=== PATIENT | female | born 1965 | race Caucasian/White ===

== ENCOUNTER 2021-01-29 07:21 | Outpatient (CLI) | payer BC, SELFPAY ==
--- NOTE | 2021-01-29 | ECG_ITS ---
Measurements Intervals [place] Rate: 68 P: 58 [place]: 180 QRS: 43 QRSD: 88 T: 29 QT: 384 QTc: 411 Interpretive Statements SINUS RHYTHM NORMAL ECG Electronically Signed On 01-29-2021 9:15:05 ELECTRICAL ENGINEERING DIRECTOR by Alpehs Estrada D.O.
== END 2021-01-29 07:22 | disposition home or self-care (01) ==
PROVIDERS: PCP Family Medicine; Visit Provider Podiatrist Foot & Ankle Surgery
DX: R03.0 Elevated blood-pressure reading, without diagnosis of hypertension (principal)
CPT/HCPCS: 93005

== ENCOUNTER 2021-04-24 18:30 | Inpatient (IN) | payer BC, SELFPAY ==
[2021-04-24] VITALS (18 sets, daily range): BP systolic 121–195; BP diastolic 55–92; PULSE 70–113; RESP 14–24; TEMP 35–36.9; O2SAT 100
--- NOTE | ~2021-04-24 | CT_ITS ---
EXAMINATION: CTA brain carotid EXAM DATE: 04/24/2021 22:26 INDICATION: Vertigo. TECHNIQUE: Noncontrast head CT. Spiral CTA of the carotid arteries was performed with intravenous i njection 100 cc of Omnipaque 350. Axial, coronal, sagittal reformatted images reviewed. Additional r eformatted images created on dedicated 3-D workstation. NASCET comparable standard used to assess th e degree of arterial stenosis. Spiral CT angiogram cerebral arteries performed with the same intrave nous injection of contrast. Source images of the brain CTA transferred to dedicated workstation for 3 -D rotational image creation. Coronal, sagittal maximum intensity pixel images also reviewed. The d ose-length product (DLP) for this examination was 1779.62 mGy-cm. The exposure was tailored accordi ng to patient size, and iterative reconstruction (ASIR) was used as additional dose reduction techniq ue. Compared to prior head CT from 04/15/2018. FINDINGS: No carotid bulb arteriosclerosis, 0% stenosis bilaterally. The vertebral arteries are codom inant. There is no carotid or vertebral basilar arterial dissection or fibromuscular dysplasia. Ther e are no cerebral artery aneurysms. There is symmetric cerebral artery arborization. The sagittal, tr ansverse and sigmoid sinuses enhance normally, no venous sinus thrombosis. Internal cerebral veins al so enhance normally. There is no acute intraparenchymal hemorrhage. No evidence of intraparenchymal brain mass lesion. N o evidence of acute infarction. There is no mass effect or midline shift. There is no obstructive hy drocephalus suspected. There are no extra-axial collections. Incidental Findings: Mild cervical spondylosis. IMPRESSION: 1. No acute carotid or intracranial findings. 2. Bilateral carotid bulb 0% stenosis. Reviewed, dictated and finalized at location B. RAG WASHER
--- NOTE | ~2021-04-24 | MR_ITS ---
EXAMINATION: MR brain/brain stem wo/w con EXAM DATE: 04/25/2021 09:32 INDICATION: Vertigo , constant with movement. TECHNIQUE: Magnetic resonance imaging (MRI) of the brain/brain stem obtained without contrast. Sagit danuta T1, axial diffusion, gradient echo (T2*), T1, T2, FLAIR sequences obtained. Patient was then inj ected with intravenous Multihance contrast, dose not documented in PACS. Axial and coronal postcontra st T1 weighted sequences obtained. Correlation is made to CTA brain carotid from yesterday. FINDINGS: There are no areas of restricted diffusion to suggest acute infarction. There is no acute hemorrhage seen on the T2*, a hemosiderin sensitive sequence. No intraparenchymal brain mass. The ve ntricles are normal in size. There are no extra-axial collections. Flow voids are seen in the cereb ral arteries on the T2-weighted sequences consistent with their expected patency. The orbits are unr emarkable. Soft tissue is unremarkable. There are no areas of abnormal enhancement on the postcont rast images. IMPRESSION: 1. Normal brain MRI examination. Reviewed, dictated and finalized at location B. LOADER
--- NOTE | 2021-04-24 18:34 | ECG_ITS ---
Measurements Intervals [place] Rate: 68 P: 37 TN: 183 QRS: 27 QRSD: 103 T: 11 QT: 411 QTc: 438 Interpretive Statements SINUS RHYTHM NORMAL EKG COMPARED TO ECG 01/29/2021 09:10:40 NO SIGNIFICANT CHANGES Electronically Signed On 04-25-2021 9:02:51 QUALITY CONTROL TECH [employer] by Phil Otoole M.D.
[2021-04-24 18:47] LABS: Basophils Percent Auto 0.4 % (0.2-1.2); Eosinophils Percent Auto 0.3 % (0-4.4); Hematocrit 44.8 % (37.0-47.0); Hemoglobin 14.6 g/dL (12.0-15.0); Immature Granulocyte Absolute 0.11 K/mm3 (0.00-0.031); Immature Granulocyte Percent A 1.2 % (0-0.5); Lymphocytes Absolute Auto 0.98 K/mm3 (0.9-3.2); Lymphocytes Percent Auto 10.9 % (18.3-44.2); Mean Corpuscular HGB Conc 32.6 g/dl (32-36); Mean Corpuscular Hemoglobin 30.4 pg (26-34); Mean Corpuscular Volume 93.1 fl (80-100); Monocytes Absolute Auto 0.6 K/mm3 (0.1-0.6); Monocytes Percent Auto 6.5 % (2.6-8.5); Neutrophils Absolute Auto 7.3 K/mm3 (1.3-6.7); Neutrophils Percent Auto 80.7 % (45.5-73.1); Platelet Count Result 214 k/mm3 (150-375); Red Blood Count 4.81 M/mm3 (4.2-5.4); Red Cell Distribution Width 12.7 % (11.5-14.5)
[2021-04-24 19:03] LABS: Alanine Aminotransferase 101 U/L (4-35); Albumin Level 4.6 g/dL (3.5-5.1); Alkaline Phosphatase 96 U/L (38-126); Anion Gap 11 mmol/L (8-16); Aspartate Amino Transferase 118 U/L (14-36); Bilirubin,Total 0.6 mg/dL (0.2-1.3); Blood Urea Nitrogen 10 mg/dL (7-17); Calcium 9.1 mg/dL (8.4-10.2); Carbon Dioxide 24 mmol/L (22-30); Chloride 107 mmol/L (98-107); Estimated CRCL calculation 85 ml/min; Estimated Glomerular Filt Rate > 60; Glucose 165 mg/dL (65-110); Potassium 3.3 mmol/L (3.4-5.0); Sodium 142 mmol/L (137-145)
[2021-04-24 21:18] LABS: Glucose Point of Care 142 mg/dl (65-105)
[2021-04-24 21:28] LABS: Basophils Absolute Auto 0.1 K/mm3 (0.0-0.1); Basophils Percent Auto 0.4 % (0.2-1.2); Eosinophils Percent Auto 0.1 % (0-4.4); Hematocrit 46.1 % (37.0-47.0); Hemoglobin 15.2 g/dL (12.0-15.0); Immature Granulocyte Percent A 1.1 % (0-0.5); Mean Corpuscular Hemoglobin 30.5 pg (26-34); Mean Corpuscular Volume 92.4 fl (80-100); Mean Platelet Volume 10.9 fl (7.4-10.4); Monocytes Absolute Auto 0.9 K/mm3 (0.1-0.6); Monocytes Percent Auto 5.1 % (2.6-8.5); Neutrophils Percent Auto 82.3 % (45.5-73.1); Platelet Count Result 257 k/mm3 (150-375); Red Blood Count 4.99 M/mm3 (4.2-5.4); Red Cell Distribution Width 12.9 % (11.5-14.5); White Blood Count 18.2 K/mm3 (4.5-10.0)
[2021-04-24 21:37] LABS: INR 1.2; Prothrombin Time 14.3 Seconds (11.1-14.7)
[2021-04-24 21:39] LABS: Alanine Aminotransferase 105 U/L (4-35); Albumin Level 4.9 g/dL (3.5-5.1); Alkaline Phosphatase 106 U/L (38-126); Anion Gap 13 mmol/L (8-16); Aspartate Amino Transferase 123 U/L (14-36); Bilirubin,Total 0.6 mg/dL (0.2-1.3); Blood Urea Nitrogen 10 mg/dL (7-17); Calcium 9.6 mg/dL (8.4-10.2); Carbon Dioxide 23 mmol/L (22-30); Chloride 107 mmol/L (98-107); Estimated CRCL calculation 85 ml/min; Estimated Glomerular Filt Rate > 60; Glucose 136 mg/dL (65-110); Potassium 3.3 mmol/L (3.4-5.0); Sodium 143 mmol/L (137-145)
[2021-04-24] MEDS: ONDANSETRON INJ 4 MG/2 ML VIAL IV PUSH (21:40)
[2021-04-24] MEDS: SODIUM CHLORIDE 0.9% IV 1,000 ML 999 ML IV CONT (21:40)
--- NOTE | 2021-04-24 22:06 | ED.DIZZY ---
HPI - Dizziness General Chief Complaint: Dizziness Stated Complaint: dizzy, n/v Time Seen by Provider: 04/24/21 20:59 Source: patient History of Present Illness HPI Narrative: Patient presents with dizziness nausea and vomiting. She reports she has had intermittent symptoms since midnight. She reports she feels like the whole room is spinning likely makes her symptoms better as she doesn't move and closes her eyes. Her symptoms are associated with nausea and vomiting she'll keep anything down feels like she has something more to throw up. She denies any focal numbness or weakness she denies any chest pain or shortness of breath denies any abdominal pain. Related Data Home Medications Medication Instructions Recorded Confirmed No Home Medications 04/25/21 04/25/21 Allergies Allergy/AdvReac Type Severity Reaction Status Date / Time No Known Allergies Allergy Unverified 06/02/14 08:15 Review of Systems Review of Systems: CONSTITUTIONAL: Denies fever, chills, or sweats. EYES: Denies visual changes, redness, or discharge. ENT: Denies rhinorrhea, congestion, sore throat, or otalgia. CARDIOVASCULAR: Denies chest pain, palpitations, or edema. RESPIRATORY: Denies cough or dyspnea. GASTROINTESTINAL: Denies abdominal pain, or diarrhea. GENITOURINARY: Denies dysuria or hematuria. SKIN: Denies rash or itching. MUSCULOSKELETAL: Denies back pain, joint pain, or myalgia. NEUROLOGIC: Denies headache, numbness, or weakness. PSYCHIATRIC: Denies anxiety or depression. PMFSH Past Medical History Medical History (Updated 04/25/21 @ 01:58 by Mildred Canseco MD) Patient denies significant medical history Family History Family History Father Malignant neoplasm of prostate Family history of diabetes mellitus in first degree relative Mother Family history of diabetes mellitus in first degree relative Family history of malignant neoplasm of breast in first degree relative Social History Social History Smoking status: Never smoker Second hand tobacco smoke exposure: No Alcohol intake: never Substance use: never Spiritual care concerns: No Exam Narrative: GENERAL: Well-appearing, well-nourished, and in no acute distress. HEAD: Normocephalic, atraumatic. EYES: PERRLA and EOMI. ENT: Nares clear, no rhinorrhea or epistaxis. Mucous membranes moist. NECK: Supple. No masses. No JVD CHEST: Clear to auscultation. No respiratory distress. No wheezes rales or rhonchi HEART: Regular rate and rhythm. No murmur heard. Normal peripheral pulses. ABDOMEN: Soft, nontender, nondistended, normal active bowel sounds. EXTREMITIES: Normal range of motion. No edema. SKIN: Warm, dry, no rash. NEURO: Cranial nerves II through XII are intact patient is 5 out of 5 strength in all extremities sensation intact to light touch in all extremities no dysdiadochokinesia no dysmetria alert and oriented x3. PSYCH: Normal mood and affect. Course Reevaluation(s) Reevaluation #1: Patient feeling somewhat improved after Valium was able to ambulate however given multiple medications need to control her symptoms and symptoms still have not completely resolved should benefit from further evaluation and imaging. Case cussed with neurology and hospitalist team will admit for further evaluation. Date: 04/24/21 Time: 23:21 Vital Signs Vital signs: Vital Signs Temperature 35.0 C L 04/24/21 18:31 Pulse Rate 70 04/24/21 18:31 Respiratory Rate 18 04/24/21 18:31 Blood Pressure 137/66 04/24/21 18:31 Pulse Oximetry 100 04/24/21 18:31 Temperature 36.9 C 04/25/21 05:28 Pulse Rate 70 04/25/21 05:28 Respiratory Rate 16 04/25/21 05:28 Blood Pressure 126/64 04/25/21 05:28 Pulse Oximetry 100 04/25/21 05:28 MDM - Dizziness MDM Narrative Medical decision making narrative: Patient presented with vertigo for approxi
[2021-04-24] MEDS: MECLIZINE HCL 25 MG TABLET PO (22:25)
[2021-04-24] MEDS: diazePAM INJ (*CRX) 10 MG/2 ML SYRINGE 2.5 MG IV PUSH (22:56)
--- NOTE | 2021-04-24 23:04 | PM.IMHP ---
H&P: HPI History of Present Illness Date/Time: 04/24/21 23:04 Chief Complaint: Vertigo Narrative: This is a 56-year-old female with no significant past medical history patient with recent foot surgery to the right lower extremity due to protracted foot fracture for the last 2+ years. Patient presents to the emergency room due to vertigo sensation of room spinning around her every time she changes position of her head or open her eyes with some nausea and vomiting as well, no syncope or near syncope , no focal sensorimotor deficit ,no palpitations ,no shortness of breath ,no cough ,no sputum production, no rigors, no chills, no fevers, no abdominal pain, no diarrhea, no vision changes. Preliminary workup was significant for why blood cell count of 18,000 CTA of head and neck did not show any acute abnormalities. Patient also denies any discharge through the nose or congestion. Patient is been admitted for further evaluation, management and treatment. Review of Systems Review of Systems: Vertigo room spinning around sensation. Nausea and vomiting. Constitutional: Constitutional: Denies body ache(s), Denies chills, Denies fatigue, Denies fever(s), Denies headache(s), Denies lethargy, Denies malaise, Denies night sweats and Denies weakness Eyes: Eyes: Denies change in vision ENT: Denies dysphagia, Reports vertigo, Reports dizziness, Denies ear discharge, Denies otalgia, Denies facial pain, Denies nasal congestion, Denies nasal discharge, Denies nasal obstruction, Denies odynophagia and Denies tinnitus Cardiovascular: Cardiovascular: Denies irregular heart rhythm, Denies leg edema, Denies lightheadedness, Denies radiating jaw, neck or arm pain, Denies palpitations, Denies dyspnea, Denies dyspnea on exertion and Denies orthopnea Respiratory: Respiratory: Denies cough, Denies excessive phlegm production, Denies dyspnea, Denies dyspnea on exertion and Denies wheezing Genitourinary: Genitourinary: Denies dysuria Musculoskeletal: Comments: Right foot surgery Integumentary/Breasts: Skin/Breast: Denies rash Neurologic: Reports vertigo, Denies focal weakness and Denies Sensory deficit (Neuro) Psychiatric: Psychiatric: Reports no additional psychiatric complaints and Reports as per HPI Endocrine: Endocrine: Denies cold intolerance, Denies heat intolerance, Denies polyphagia, Denies polydipsia, Denies polyuria and Denies palpitations Hematologic/Lymphatic: Hematologic/Lymphatic: Reports no additional hematologic/lymphatic complaints and Reports as per HPI Allergic/Immunologic: Allergic/Immunologic: Reports no additional allergic/immunologic complaints and Reports as per HPI [facility] Past Medical History Medical History (Updated 04/25/21 @ 01:58 by Mildred Canseco MD) Patient denies significant medical history Family History Family History Father Malignant neoplasm of prostate Family history of diabetes mellitus in first degree relative Mother Family history of diabetes mellitus in first degree relative Family history of malignant neoplasm of breast in first degree relative Social History Social History Smoking status: Never smoker Alcohol intake: never Meds Home Medications and Allergies Allergies Allergy/AdvReac Type Severity Reaction Status Date / Time No Known Allergies Allergy Unverified 06/02/14 08:15 Vital Signs Vital Signs - 24 hr 04/24/21 18:31 04/24/21 21:01 04/24/21 21:02 Temperature 95.0 F L Pulse Rate 70 113 H 99 Respiratory Rate 18 24 H 19 Blood Pressure 137/66 195/92 H Pulse Oximetry 100 04/24/21 21:11 04/24/21 21:30 04/24/21 21:31 Temperature 98.4 F Pulse Rate 85 80 79 Respiratory Rate 19 17 17 Blood Pressure 136/76 134/75 Pulse Oximetry 04/24/21 22:17 04/24/21 22:19 04/24/21 22:30 Temperature Pulse Rate 103 H 84 81 Respiratory Rate 16 18 15 Blood Pressure 1
[2021-04-24 23:20] LABS: Add Urine Microscopic? YES; Appearance Urine Clear (Clear); Bacteria Urine Trace /hpf; Bilirubin Urine Negative (Negative); Blood Urine Negative (Negative); Color Urine Yellow (Yellow); Glucose Urine UA Negative (Negative); Ketones Urine Trace mg/dL (Negative); Leukocyte Esterase Ur Negative LEU/UL (Negative); Mucus Urine Rare /lpf; Nitrate Urine Negative (Negative); Protein Urine Negative (Negative); RBC Urine 0-2 /hpf (0-2); Squamous Epithelial Cell Urine Occasional /hpf (Few); Urobilinogen Urine Negative mg/dL (<2.0); WBC Urine 0-3 /hpf
[2021-04-25] VITALS (11 sets, daily range): BP systolic 115–143; BP diastolic 58–86; PULSE 70–81; RESP 16–22; TEMP 36.2–37.1; O2SAT 97–100; BMI 28.6
--- NOTE | 2021-04-25 00:22 | PC.NURSE ---
Pt ambulatory to rest room (5') with stand by assistance by staff.
--- NOTE | 2021-04-25 00:30 | ADMGEN ---
This patient, Daisha Tabor, was admitted to 3 Med Surg Room 327-01. Patient/family oriented to hospital policies and general routines including ID bracelet, bed and alarms, visiting hours, pain management, procedures, bathroom and other care routines, personal items, smoking policy, room service/diet, and visiting hours. Information on how to activate the Rapid Response Team has been discussed. Patient/Family are encouraged to report perceived risks to care and to ask questions if they do not understand what they are told or what they should do.
[2021-04-25] MEDS: ONDANSETRON INJ 4 MG/2 ML VIAL IV PUSH (01:04)
[2021-04-25] MEDS: SODIUM CHLORIDE 0.9% IV 1,000 ML 125 ML IV CONT ×2 (03:57→13:31)
[2021-04-25 05:55] LABS: Basophils Percent Auto 0.2 % (0.2-1.2); Eosinophils Percent Auto 0.1 % (0-4.4); Hematocrit 39.2 % (37.0-47.0); Hemoglobin 12.8 g/dL (12.0-15.0); Immature Granulocyte Absolute 0.03 K/mm3 (0.00-0.031); Immature Granulocyte Percent A 0.4 % (0-0.5); Lymphocytes Absolute Auto 1.31 K/mm3 (0.9-3.2); Lymphocytes Percent Auto 15.9 % (18.3-44.2); Mean Corpuscular HGB Conc 32.7 g/dl (32-36); Mean Corpuscular Hemoglobin 30.7 pg (26-34); Mean Platelet Volume 10.7 fl (7.4-10.4); Monocytes Absolute Auto 0.5 K/mm3 (0.1-0.6); Monocytes Percent Auto 6.5 % (2.6-8.5); Neutrophils Absolute Auto 6.3 K/mm3 (1.3-6.7); Neutrophils Percent Auto 76.9 % (45.5-73.1); Platelet Count Result 180 k/mm3 (150-375); Red Blood Count 4.17 M/mm3 (4.2-5.4); Red Cell Distribution Width 12.9 % (11.5-14.5); White Blood Count 8.3 K/mm3 (4.5-10.0)
--- NOTE | 2021-04-25 12:56 | WPDNEURCNPN ---
Assessment and Plan Additional Plan Labyrinthitis/ treatment supportive Consult date: 04/25/21 HPI: Daisha Tabor is a 56 year old female admitted to the hospital for the complaints of vertiginous dizziness in addition to the history of recent foot surgery to her right lower extremity due to protracted foot fracture over the last 2 years patient reported to the ER personnel the room was spinning around her time she changed position of her head her open her eyes with nausea and vomiting but no syncope or near syncopal episodes no focal sensory motor deficit no palpitation no shortness of breath no cough initial evaluation documented WBCs of 18.[address] scan of the head repeat WBC is only 8.3 coagulation profile negative , BMP with potassium 3.3 glucose 136 hepatic enzymes elevated and UA negative, initial CTA with bilateral carotid bulbs 0% stenosis no acute stenosis or blockage an MRI of the brain without involvement of the posterior circulation or posterior fossa or internal canals Review of Systems Review of Systems: All systems reviewed & are unremarkable except as noted in HPI and below PMFSH Past Medical History Medical History Patient denies significant medical history Family History Family History Father Malignant neoplasm of prostate Family history of diabetes mellitus in first degree relative Mother Family history of diabetes mellitus in first degree relative Family history of malignant neoplasm of breast in first degree relative Social History Social History Smoking status: Never smoker Second hand tobacco smoke exposure: No Alcohol intake: never Substance use: never Spiritual care concerns: No Meds Home Medications and Allergies Home Medications Medication Instructions Recorded Confirmed Type No Home Medications 04/25/21 04/25/21 History Allergies Allergy/AdvReac Type Severity Reaction Status Date / Time No Known Allergies Allergy Unverified 06/02/14 08:15 Vital Signs Vital Signs - 24 hr 04/24/21 18:31 04/24/21 21:01 04/24/21 21:02 Temperature 35.0 C L Pulse Rate 70 113 H 99 Respiratory Rate 18 24 H 19 Blood Pressure 137/66 195/92 H Pulse Oximetry 100 04/24/21 21:11 04/24/21 21:30 04/24/21 21:31 Temperature 36.9 C Pulse Rate 85 80 79 Respiratory Rate 19 17 17 Blood Pressure 136/76 134/75 Pulse Oximetry 04/24/21 22:17 04/24/21 22:19 04/24/21 22:30 Temperature Pulse Rate 103 H 84 81 Respiratory Rate 16 18 15 Blood Pressure 121/55 L Pulse Oximetry 04/24/21 22:31 04/24/21 22:32 04/24/21 22:35 Temperature Pulse Rate 81 82 82 Respiratory Rate 18 16 20 Blood Pressure 126/64 161/84 H Pulse Oximetry 04/24/21 22:43 04/24/21 22:44 04/24/21 23:00 Temperature Pulse Rate 81 78 77 Respiratory Rate 19 14 Blood Pressure 153/90 H 153/90 H Pulse Oximetry 04/24/21 23:01 04/24/21 23:30 04/24/21 23:46 Temperature 36.9 C Pulse Rate 91 75 84 Respiratory Rate 20 15 24 H Blood Pressure 135/76 121/61 Pulse Oximetry 04/25/21 00:00 04/25/21 00:01 04/25/21 00:02 Temperature 37.1 C Pulse Rate 73 75 77 Respiratory Rate 17 22 H 19 Blood Pressure 122/58 L Pulse Oximetry 04/25/21 00:30 04/25/21 01:01 04/25/21 02:24 Temperature 36.3 C L Pulse Rate 72 72 71 Respiratory Rate 16 16 Blood Pressure 143/86 H 138/69 Pulse Oximetry 100 04/25/21 05:28 04/25/21 11:58 Temperature 36.9 C Pulse Rate 70 Respiratory Rate 16 Blood Pressure 126/64 Pulse Oximetry 100 99 Exam Narrative: awake alert cooperative in no obvious acute distress, head normocephalic with no cranial bruit, ear nose throat examination normal, neck supple with no cervical bruit no thyromegaly no lymphadenopathy, heart regular with no murmur lungs clear to auscultation with
[2021-04-25] MEDS: LORazepam INJ (*CRX) 2 MG/ML VIAL 1 MG IV PUSH (13:37)
[2021-04-25] MEDS: MECLIZINE HCL 25 MG TABLET PO (13:37)
--- NOTE | 2021-04-25 14:42 | PM.IMPN ---
Progress Note: A&P Assessment and Plan (1) Benign paroxysmal positional vertigo: Code(s): H81.10 - Benign paroxysmal vertigo, unspecified ear Status: Acute Assessment and Plan: MRI head is negative Neurology consult reviewed Pt still complains of dizziness and turning her head, I will consult ENT (2) Nausea & vomiting: Qualifiers: Vomiting type: unspecified Qualified Code(s): R11.2 - Nausea with vomiting, unspecified Code(s): R11.2 - Nausea with vomiting, unspecified Status: Acute Assessment and Plan: Likely secondary to vertigo Continue IV fluids (3) Wound of right foot: Code(s): S91.301A - Unspecified open wound, right foot, initial encounter Status: Acute Assessment and Plan: Local care I will treat with IV vancomycin recent foot surgery with infection Watch for Subjective Date/time seen: 04/25/21 14:42 Interval history: 56-year-old female with no significant past medical history patient with recent foot surgery to the right lower extremity due to protracted foot fracture for the last 2+ years. Complains of vertigo Mri is negative. Pt seen by neurology, I will consult ENT also. Awaiting recent foot surgery. Review of Systems Review of Systems: All systems reviewed & are unremarkable except as noted in HPI and below Exam Const: General: No in distress Nutritional Appearance: other (anxious tired ) Orientation/consciousness: oriented to person HENMT: Head: normal to inspection Resp: Effort & Inspection: no respiratory distress Auscultation: no rhonchi and no wheezes Cardio: Rate: regular rate Rhythm: regular rhythm GI: Inspection: normal to inspection GI Palp: No abdominal tenderness, No Guarding due to palpation present (GI) and No Hepatomegaly present Auscultation: normal bowel sounds Neuro: General: oriented to person Objective Data Vital Signs Vital Signs: Vital Signs - 24 hr 04/24/21 18:31 04/24/21 21:01 04/24/21 21:02 Temperature 35.0 C L Pulse Rate 70 113 H 99 Respiratory Rate 18 24 H 19 Blood Pressure 137/66 195/92 H Pulse Oximetry 100 04/24/21 21:11 04/24/21 21:30 04/24/21 21:31 Temperature 36.9 C Pulse Rate 85 80 79 Respiratory Rate 19 17 17 Blood Pressure 136/76 134/75 Pulse Oximetry 04/24/21 22:17 04/24/21 22:19 04/24/21 22:30 Temperature Pulse Rate 103 H 84 81 Respiratory Rate 16 18 15 Blood Pressure 121/55 L Pulse Oximetry 04/24/21 22:31 04/24/21 22:32 04/24/21 22:35 Temperature Pulse Rate 81 82 82 Respiratory Rate 18 16 20 Blood Pressure 126/64 161/84 H Pulse Oximetry 04/24/21 22:43 04/24/21 22:44 04/24/21 23:00 Temperature Pulse Rate 81 78 77 Respiratory Rate 19 14 Blood Pressure 153/90 H 153/90 H Pulse Oximetry 04/24/21 23:01 04/24/21 23:30 04/24/21 23:46 Temperature 36.9 C Pulse Rate 91 75 84 Respiratory Rate 20 15 24 H Blood Pressure 135/76 121/61 Pulse Oximetry 04/25/21 00:00 04/25/21 00:01 04/25/21 00:02 Temperature 37.1 C Pulse Rate 73 75 77 Respiratory Rate 17 22 H 19 Blood Pressure 122/58 L Pulse Oximetry 04/25/21 00:30 04/25/21 01:01 04/25/21 02:24 Temperature 36.3 C L Pulse Rate 72 72 71 Respiratory Rate 16 16 Blood Pressure 143/86 H 138/69 Pulse Oximetry 100 04/25/21 05:28 04/25/21 11:58 Temperature 36.9 C Pulse Rate 70 Respiratory Rate 16 Blood Pressure 126/64 Pulse Oximetry 100 99 Intake/Output Intake/Output: Intake & Output 04/22/21 04/23/21 04/24/21 04/25/21 23:59 23:59 23:59 23:59 Intake Total 1000 1500 Output Total 500 Balance 1000 1000 Meds/Results Medications: Active Medications Generic Name Dose Route Start Last Admin Trade Name Freq PRN Reason Stop Dose Admin Acetaminophen 1,000 mg in 100 mls @ 400 mls/hr 04/24/21 23:23 Ofirmev 1,000 Mg Ivpb IVPB 04/25/21 23:22 Q6H PRN Mild Pain (1-3) or Fever Sodium Chlor
--- NOTE | 2021-04-25 19:57 | WPDCN ---
Assessment and Plan Assessment and plan (1) Vertigo: Code(s): R42 - Dizziness and giddiness Status: Acute Assessment and Plan: My impression is that the patient currently has a vestibular neuritis, possible positional component. Unsure why white count elevated yesterday, perhaps post operative etiology. Recommend ruling out sepsis/post op etiology. Regarding neuritis, low dose steroid taper may be beneficial. Once the patient improves and move around, conisder physical therapy consultation for balanace as well as to better delineate any positional vertigo component with a hope of improving the positional component if present via erasmo etc. Benzos, low dose, may also be of benefit re vertigo/nausea, also if there is a migraine component. Patient does have a history of migraines, makes her more likely to suffer from migraine vertiginous variants. In summary, rule out post op cause, trial of low dose steroids, once improving consult physical therapy. Please call with any questions [phone] (2) Vestibular neuritis: Code(s): H81.20 - Vestibular neuronitis, unspecified ear Status: Acute HPI Data of Consult Date/Time: 04/25/21 19:57 Requesting Physician: Mildred Canseco MD Primary Care Provider: Stanley Burr MD Consult Narrative Narrative: Daisha Tabor is a 56 year old female with a recent onset of vertigo/nausea/vomitting. Denies recent URI. No hearing changes, no tinnitus. Recent foot surgery. WBC elevated yesterday, appears normal now, afebrile. Vertigo imbalance present at baseline. Vertigo worse with really all head movements. CTA reviewed, normal from ent standpoint. [facility] Past Medical History Medical History Patient denies significant medical history Family History Family History Father Malignant neoplasm of prostate Family history of diabetes mellitus in first degree relative Mother Family history of diabetes mellitus in first degree relative Family history of malignant neoplasm of breast in first degree relative Social History Social History Smoking status: Never smoker Second hand tobacco smoke exposure: No Alcohol intake: never Substance use: never Spiritual care concerns: No Meds Home Medications and Allergies Home Medications Medication Instructions Recorded Confirmed Type No Home Medications 04/25/21 04/25/21 History Allergies Allergy/AdvReac Type Severity Reaction Status Date / Time No Known Allergies Allergy Unverified 06/02/14 08:15 Vital Signs Vital Signs - 24 hr 04/24/21 21:01 04/24/21 21:02 04/24/21 21:11 Temperature Pulse Rate 113 H 99 85 Respiratory Rate 24 H 19 19 Blood Pressure 195/92 H 136/76 Pulse Oximetry 04/24/21 21:30 04/24/21 21:31 04/24/21 22:17 Temperature 36.9 C Pulse Rate 80 79 103 H Respiratory Rate 17 17 16 Blood Pressure 134/75 Pulse Oximetry 04/24/21 22:19 04/24/21 22:30 04/24/21 22:31 Temperature Pulse Rate 84 81 81 Respiratory Rate 18 15 18 Blood Pressure 121/55 L 126/64 Pulse Oximetry 04/24/21 22:32 04/24/21 22:35 04/24/21 22:43 Temperature Pulse Rate 82 82 81 Respiratory Rate 16 20 Blood Pressure 161/84 H 153/90 H Pulse Oximetry 04/24/21 22:44 04/24/21 23:00 04/24/21 23:01 Temperature 36.9 C Pulse Rate 78 77 91 Respiratory Rate 19 14 20 Blood Pressure 153/90 H 135/76 Pulse Oximetry 04/24/21 23:30 04/24/21 23:46 04/25/21 00:00 Temperature Pulse Rate 75 84 73 Respiratory Rate 15 24 H 17 Blood Pressure 121/61 Pulse Oximetry 04/25/21 00:01 04/25/21 00:02 04/25/21 00:30 Temperature 37.1 C Pulse Rate 75 77 72 Respiratory Rate 22 H 19 Blood Pressure 122/58 L Pulse Oximetry 04/25/21 01:01 04/25/21 02:24 04/25/21 05:28 Temperature 36.3 C L 36.9 C P
[2021-04-26] MEDS: SODIUM CHLORIDE 0.9% IV 1,000 ML 75 ML IV CONT ×2 (04:07→20:17)
[2021-04-26 05:53] VITALS: BP 130/78; PULSE 60; RESP 16; TEMP 36.4; O2SAT 98
[2021-04-26 05:54] VITALS: BP 130/78; PULSE 60; RESP 16; TEMP 36.4; O2SAT 98
[2021-04-26 06:26] LABS: Estimated CRCL calculation 85 ml/min; Estimated Glomerular Filt Rate > 60
[2021-04-26 10:03] LABS: CRP < 0.5 mg/dL (<1.0)
[2021-04-26 10:13] LABS: Erythrocyte Sedimentation Rate 20 mm/hr (0-20)
[2021-04-26] MEDS: LORazepam INJ (*CRX) 2 MG/ML VIAL 1 MG IV PUSH (11:23)
[2021-04-26] MEDS: MECLIZINE HCL 25 MG TABLET PO (11:23)
[2021-04-26] MEDS: ACETAMINOPHEN/ASPIRIN/CAFFEINE 250-250-65 MG TABLET 2 TABLET PO (11:30)
--- NOTE | 2021-04-26 12:59 | WPDNEUROPN ---
Progress Note: A&P Additional Plan continue the treatment as such which include IV fluids, meclizine and bedrest Time Spent With Patient Time with patient: less than 15 minutes Subjective Date/time seen: 04/26/21 12:59 labyrinthitis with normal routine lab including pro time and APTT though her hepatic enzymes are elevated C-reactive protein is less than 0.5, MRI of the brain is negative including the safety admin assistant fossa and CTA is completely negative Review of Systems Review of Systems: All systems reviewed & are unremarkable except as noted in HPI and below Exam Narrative: remains awake alert but very uncomfortable the moment she moves her head from side to side she becomes dizzy she can't raise the head off the bed can't sit can't walk, no cranial bruit, ear nose throat examination normal neck supple with no cervical bruit no thyromegaly no lymphadenopathy heart regular lungs clear abdomen is soft neurological is she is awake alert but uncomfortable preferred to keep the eyes closed pupils round regular feels the vision full extraocular motions with the mild nystagmus facial sensation intact face symmetrical tongue midline motor examination revealed her to have no gross drift against gravity on either side reflexes symmetrical plantars are downgoing Objective Data Vital Signs Vital Signs: Vital Signs - 24 hr 04/25/21 20:43 04/25/21 21:05 04/25/21 21:10 Temperature 36.2 C L 36.2 C L Pulse Rate 81 81 Respiratory Rate 18 18 Blood Pressure 115/72 115/72 Pulse Oximetry 97 97 97 04/26/21 05:53 04/26/21 05:54 Temperature 36.4 C 36.4 C Pulse Rate 60 60 Respiratory Rate 16 16 Blood Pressure 130/78 130/78 Pulse Oximetry 98 98 Intake/Output Intake/Output: Intake & Output 04/23/21 04/24/21 04/25/21 04/26/21 23:59 23:59 23:59 23:59 Intake Total 1000 2110 1610 Output Total 1000 1550 Balance 1000 1110 60 Meds/Results Medications: Active Medications Generic Name Dose Route Start Last Admin Trade Name Freq PRN Reason Stop Dose Admin Acetaminophen/Aspirin/Caffeine 2 tablet 04/26/21 11:12 04/26/21 11:30 Acetaminophen/Aspirin/Caffeine 250-250-65 Mg Tablet PO 2 tablet Q6H PRN Administration Pain Rated 1-3 Sodium Chloride 1,000 mls @ 75 mls/hr 04/24/21 23:25 04/26/21 04:07 Normal Saline Iv IV CONT 75 mls/hr .[id number] VIOLETA Administration Vancomycin HCl 1,250 mg in 250 mls @ 200 mls/hr 04/25/21 16:00 04/26/21 06:35 Vancomycin 1,250 Mg/D5w 250 Ml IVPB Infused Q12H VIOLETA Infusion Lorazepam 1 mg 04/24/21 23:28 04/26/21 11:23 Lorazepam Inj (*Crx) 2 Mg/Ml Vial IV PUSH 1 mg Q6H PRN Administration Vertigo Meclizine HCl 25 mg 04/24/21 23:30 04/26/21 11:23 Meclizine Hcl 25 Mg Tablet PO 25 mg BID PRN Administration vertigo Ondansetron HCl 4 mg 04/24/21 23:23 04/25/21 01:04 Ondansetron Inj 4 Mg/2 Ml Vial IV PUSH 4 mg Q4H PRN Administration Nausea Radiology Results: ITS Impressions Head/Neck CTA 04/25/21 08:15 IMPRESSION: 1. No acute carotid or intracranial findings. 2. Bilateral carotid bulb 0% stenosis. Brain MRI 04/25/21 09:39 IMPRESSION: 1. Normal brain MRI examination. Labs Labs: Laboratory Results - last 24 hr 04/26/21 04/26/21 04/26/21 05:41 05:44 05:44 ESR 20 Creatinine 0.70 Estim Creat Clear Calc 85 Estimated GFR > 60 C-Reactive Protein < 0.5 Quality VTE Prophylaxis VTE prophylaxis: mechanical ordered
[2021-04-26 14:00] VITALS: BP 153/90; PULSE 83; RESP 18; TEMP 36.1; O2SAT 97
--- NOTE | 2021-04-26 15:00 | PCOTNOTE ---
Per nurse, pt. on bedrest orders for today
--- NOTE | 2021-04-26 15:07 | PCOTNOTE ---
Pt. unable to be evaluated today as pt. is on bedrest orders
--- NOTE | 2021-04-26 16:18 | PM.IMPN ---
Progress Note: A&P Assessment and Plan (1) Benign paroxysmal positional vertigo: Code(s): H81.10 - Benign paroxysmal vertigo, unspecified ear Status: Acute Assessment and Plan: MRI head is negative Neurology consult reviewed Pt still complains of dizziness and turning her head, I will consult ENT 04/26/2021 interval history: patient with complaint of dizziness and nausea and vomiting, CTA of the head and neck and MRI of the brain are negative for any acute injury, patient is seen by ENT and suspect patient may have a vestibular neuritis recommended to start the patient low-dose of steroids will start the patient on methylprednisone 40 mg b.i.d., patient is seen by Neurology and suspect labyrinthitis, patient is also started on meclizine, will continue to monitor will have a PT OT evaluate the patient further recommendation to follow. (2) Nausea & vomiting: Qualifiers: Vomiting type: unspecified Qualified Code(s): R11.2 - Nausea with vomiting, unspecified Code(s): R11.2 - Nausea with vomiting, unspecified Status: Acute Assessment and Plan: Likely secondary to vertigo Continue IV fluids (3) Wound of right foot: Code(s): S91.301A - Unspecified open wound, right foot, initial encounter Status: Acute Assessment and Plan: Local care I will treat with IV vancomycin recent foot surgery with infection Watch for BC Subjective Date/time seen: 04/26/21 16:18 Chief Complaint: Vertigo HPI-Narrative: This is a 56-year-old female with no significant past medical history patient with recent foot surgery to the right lower extremity due to protracted foot fracture for the last 2+ years. Patient presents to the emergency room due to vertigo sensation of room spinning around her every time she changes position of her head or open her eyes with some nausea and vomiting as well, no syncope or near syncope , no focal sensorimotor deficit ,no palpitations ,no shortness of breath ,no cough ,no sputum production, no rigors, no chills, no fevers, no abdominal pain, no diarrhea, no vision changes. Preliminary workup was significant for why blood cell count of 18,000 CTA of head and neck did not show any acute abnormalities. Patient also denies any discharge through the nose or congestion. Patient is been admitted for further evaluation, management and treatment. 04/26/2021 interval history: patient with complaint of dizziness and nausea and vomiting, CTA of the head and neck and MRI of the brain are negative for any acute injury, patient is seen by ENT and suspect patient may have a vestibular neuritis recommended to start the patient low-dose of steroids will start the patient on methylprednisone 40 mg b.i.d., patient is seen by Neurology and suspect labyrinthitis, patient is also started on meclizine, will continue to monitor will have a PT OT evaluate the patient further recommendation to follow. Review of Systems Review of Systems: All systems reviewed & are unremarkable except as noted in HPI and below Exam Narrative: Patient is comfortable, NAD HEENT: eyes are clear and none icteric LUNGS: normal respiratory effort ABD: not distended Lower extremities: no edema SKIN: nonjaundiced Neuro: grossly intact. Objective Data Vital Signs Vital Signs: Vital Signs - 24 hr 04/25/21 20:43 04/25/21 21:05 04/25/21 21:10 Temperature 97.1 F L 97.1 F L Pulse Rate 81 81 Respiratory Rate 18 18 Blood Pressure 115/72 115/72 Pulse Oximetry 97 97 97 04/26/21 05:53 04/26/21 05:54 04/26/21 14:00 Temperature 97.6 F 97.6 F 97 F L Pulse Rate 60 60 83 Respiratory Rate 16 16 18 Blood Pressure 130/78 130/78 153/90 H Pulse Oximetry 98 98 97 Intake/Output Intake/Output: Intake & Output 04/23/21 04/24/21 04/25/21 04/26/21 23:59 23:59 23:59 23:59 Intake Total 1000 2110 1730 Output Total 1000 1550 Balance 1000 1110 180 Meds/Results Medications: Activ
[2021-04-26] MEDS: methylPREDNISolone SOD SUCC 40 MG VIAL IV PUSH (17:48)
[2021-04-26 20:35] VITALS: PULSE 86; O2SAT 94
[2021-04-26 22:00] VITALS: BP 134/76; PULSE 86; RESP 16; TEMP 36.2; O2SAT 95
[2021-04-27 04:39] LABS: Vancomycin Trough 10.1 ug/mL (10.0-20.0)
[2021-04-27] MEDS: MECLIZINE HCL 25 MG TABLET PO ×2 (05:16→16:49)
[2021-04-27 06:00] VITALS: BP 128/80; PULSE 73; RESP 16; TEMP 36.1; O2SAT 95
--- NOTE | 2021-04-27 07:13 | P.CONOP_ITS ---
Assessment and Plan Additional Plan 56-year-old female whom we are asked to consult on on whether or not she may have an infection in her foot. She had multiple foot surgeries starting in January by local project management professor. She has recently had a K-wire pin removed. Patient has vestibular neuritis and it is recommended that she be started on steroids. For steroids were started we are asked for evaluation make sure there was no issues in regards to starting the steroids and relative to her foot. Dr. Marr did review op notes. He also had them draw a sed rate in CRP both of these are completely normal which would rule against any type of infection. Oral steroids can be used on her without any concern with regard to her foot. I f patient continues to have any symptoms in her foot she should follow-up with the project management professor who did her surgeries. History of Present Illness HPI Consult date: 04/27/21 Chief complaint: veritgo PMFSH Past Medical History Medical History Patient denies significant medical history Family History Family History Father Malignant neoplasm of prostate Family history of diabetes mellitus in first degree relative Mother Family history of diabetes mellitus in first degree relative Family history of malignant neoplasm of breast in first degree relative Social History Social History Smoking status: Never smoker Second hand tobacco smoke exposure: No Alcohol intake: never Substance use: never Spiritual care concerns: No Meds Home Medications and Allergies Home Medications Medication Instructions Recorded Confirmed Type No Home Medications 04/25/21 04/25/21 History Allergies Allergy/AdvReac Type Severity Reaction Status Date / Time No Known Allergies Allergy Unverified 06/02/14 08:15 Vital Signs Vital Signs - 24 hr 04/26/21 14:00 04/26/21 20:35 04/26/21 22:00 Temperature 36.1 C L 36.2 C L Pulse Rate 83 86 86 Respiratory Rate 18 16 Blood Pressure 153/90 H 134/76 Pulse Oximetry 97 94 95 04/27/21 06:00 Temperature 36.1 C L Pulse Rate 73 Respiratory Rate 16 Blood Pressure 128/80 Pulse Oximetry 95 Results Labs Result Diagrams: 04/25/21 05:40 04/26/21 05:44 Labs: H & H 04/24/21 04/24/21 04/25/21 Range/Units 18:40 21:18 05:40 Hgb 14.6 15.2 H 12.8 (12.0-15.0) g/dL Hct 44.8 46.1 39.2 (37.0-47.0) % Coagulation 04/24/21 Range/Units 21:18 INR 1.2 All other labs normal. Quality VTE Prophylaxis VTE prophylaxis: mechanical ordered
[2021-04-27] MEDS: methylPREDNISolone SOD SUCC 40 MG VIAL IV PUSH ×2 (08:01→16:49)
[2021-04-27] MEDS: ACETAMINOPHEN/ASPIRIN/CAFFEINE 250-250-65 MG TABLET 2 TABLET PO (10:09)
[2021-04-27] MEDS: SODIUM CHLORIDE 0.9% IV 1,000 ML 75 ML IV CONT (10:09)
--- NOTE | 2021-04-27 10:18 | PCPTNOTE ---
Attempted physical therapy evaluation, Pt. unable to be evaluated today as pt. is on bedrest orders. Awaiting a call back from hospitalist to see if orders can be changed at this time.
--- NOTE | 2021-04-27 12:51 | WPDNEUROPN ---
Subjective Date/time seen: 04/27/21 12:51 follow-up for the vestibular dysfunction, significantly improved able to sit in the chair look around with no nystagmus and also no nausea vomiting or dizziness but is still not completely back to 100% medications are being continued such on examination she is awake alert cooperative his speech nor dysphasic no dysarthric not dysphonic the cranial examination is normal motor examination revealed no ataxia or dysmetria no drift against gravity reflexes symmetrical and plantars are downgoing treatment will be continued Objective Data Vital Signs Vital Signs: Vital Signs - 24 hr 04/26/21 14:00 04/26/21 20:35 04/26/21 22:00 Temperature 36.1 C L 36.2 C L Pulse Rate 83 86 86 Respiratory Rate 18 16 Blood Pressure 153/90 H 134/76 Pulse Oximetry 97 94 95 04/27/21 06:00 Temperature 36.1 C L Pulse Rate 73 Respiratory Rate 16 Blood Pressure 128/80 Pulse Oximetry 95 Intake/Output Intake/Output: Intake & Output 04/24/21 04/25/21 04/26/21 04/27/21 23:59 23:59 23:59 23:59 Intake Total 1000 2110 3520 2480 Output Total 1000 3050 1900 Balance 1000 1110 470 580 Meds/Results Medications: Active Medications Generic Name Dose Route Start Last Admin Trade Name Freq PRN Reason Stop Dose Admin Acetaminophen/Aspirin/Caffeine 2 tablet 04/26/21 11:12 04/27/21 10:09 Acetaminophen/Aspirin/Caffeine 250-250-65 Mg Tablet PO 2 tablet Q6H PRN Administration Pain Rated 1-3 Sodium Chloride 1,000 mls @ 75 mls/hr 04/24/21 23:25 04/27/21 10:09 Normal Saline Iv IV CONT 75 mls/hr .[id number] VIOLETA Administration Vancomycin HCl 1,250 mg in 250 mls @ 200 mls/hr 04/25/21 16:00 04/27/21 07:40 Vancomycin 1,250 Mg/D5w 250 Ml IVPB Infused Q12H VIOLETA Infusion Lorazepam 1 mg 04/24/21 23:28 04/26/21 11:23 Lorazepam Inj (*Crx) 2 Mg/Ml Vial IV PUSH 1 mg Q6H PRN Administration Vertigo Meclizine HCl 25 mg 04/24/21 23:30 04/27/21 05:16 Meclizine Hcl 25 Mg Tablet PO 25 mg BID PRN Administration vertigo Methylprednisolone Sodium Succinate 40 mg 04/26/21 17:00 04/27/21 08:01 Methylprednisolone Sod Succ 40 Mg Vial IV PUSH 40 mg BID VIOLETA Administration Ondansetron HCl 4 mg 04/24/21 23:23 04/25/21 01:04 Ondansetron Inj 4 Mg/2 Ml Vial IV PUSH 4 mg Q4H PRN Administration Nausea Radiology Results: ITS Impressions Head/Neck CTA 04/25/21 08:15 IMPRESSION: 1. No acute carotid or intracranial findings. 2. Bilateral carotid bulb 0% stenosis. Brain MRI 04/25/21 09:39 IMPRESSION: 1. Normal brain MRI examination. Labs Labs: Laboratory Results - last 24 hr 04/27/21 03:28 Vancomycin Trough 10.1 Quality VTE Prophylaxis VTE prophylaxis: mechanical ordered Amg Follow-up Billing Inpatient Follow-up [id number] Subs Hosp Care Low
[2021-04-27 13:41] VITALS: BP 146/91; PULSE 87; RESP 18; TEMP 36.1; O2SAT 97
--- NOTE | 2021-04-27 14:20 | PM.IMPN ---
Progress Note: A&P Assessment and Plan (1) Benign paroxysmal positional vertigo: Code(s): H81.10 - Benign paroxysmal vertigo, unspecified ear Status: Acute Assessment and Plan: MRI head is negative Neurology consult reviewed Pt still complains of dizziness and turning her head, I will consult ENT 04/26/2021 interval history: patient with complaint of dizziness and nausea and vomiting, CTA of the head and neck and MRI of the brain are negative for any acute injury, patient is seen by ENT and suspect patient may have a vestibular neuritis recommended to start the patient low-dose of steroids will start the patient on methylprednisone 40 mg b.i.d., patient is seen by Neurology and suspect labyrinthitis, patient is also started on meclizine, will continue to monitor will have a PT OT evaluate the patient further recommendation to follow. 04/27/2021 interval history: patient continue to complaint of dizziness and nausea and vomiting, CTA of the head and neck and MRI of the brain are negative for any acute injury, patient was seen by ENT and suspect patient may have a vestibular neuritis recommended to start the patient low-dose of steroids, started the patient on methylprednisone IV 40 mg b.i.d., patient is seen by Neurology and suspect labyrinthitis, patient is also started on meclizine, patient still unsteady of her feet, will continue IV steroids, will continue to monitor, have continue PT OT evaluate the patient further recommendation to follow. (2) Nausea & vomiting: Qualifiers: Vomiting type: unspecified Qualified Code(s): R11.2 - Nausea with vomiting, unspecified Code(s): R11.2 - Nausea with vomiting, unspecified Status: Acute Assessment and Plan: Likely secondary to vertigo Continue IV fluids (3) Wound of right foot: Code(s): S91.301A - Unspecified open wound, right foot, initial encounter Status: Acute Assessment and Plan: Local care I will treat with IV vancomycin recent foot surgery with infection Watch for BC Subjective Date/time seen: 04/27/21 14:20 04/26/2021 interval history: patient with complaint of dizziness and nausea and vomiting, CTA of the head and neck and MRI of the brain are negative for any acute injury, patient is seen by ENT and suspect patient may have a vestibular neuritis recommended to start the patient low-dose of steroids will start the patient on methylprednisone 40 mg b.i.d., patient is seen by Neurology and suspect labyrinthitis, patient is also started on meclizine, will continue to monitor will have a PT OT evaluate the patient further recommendation to follow. 04/27/2021 interval history: patient continue to complaint of dizziness and nausea and vomiting, CTA of the head and neck and MRI of the brain are negative for any acute injury, patient was seen by ENT and suspect patient may have a vestibular neuritis recommended to start the patient low-dose of steroids, started the patient on methylprednisone IV 40 mg b.i.d., patient is seen by Neurology and suspect labyrinthitis, patient is also started on meclizine, patient still unsteady of her feet, will continue IV steroids, will continue to monitor, have continue PT OT evaluate the patient further recommendation to follow. Review of Systems Review of Systems: All systems reviewed & are unremarkable except as noted in HPI and below Exam Narrative: Patient is comfortable, NAD HEENT: eyes are clear and none icteric LUNGS: normal respiratory effort ABD: not distended Lower extremities: no edema SKIN: nonjaundiced Neuro: grossly intact. Objective Data Vital Signs Vital Signs: Vital Signs - 24 hr 04/26/21 20:35 04/26/21 22:00 04/27/21 06:00 Temperature 97.1 F L 96.9 F L Pulse Rate 86 86 73 Respiratory Rate 16 16 Blood Pressure 134/76 128/80 Pulse Oximetry 94 95 95 04/27/21 13:41 Temperature 97 F L Pulse Rate 87 Respiratory Rate 18
[2021-04-27 21:59] VITALS: BP 140/80; PULSE 90; RESP 16; TEMP 36.1; O2SAT 97
[2021-04-28] MEDS: SODIUM CHLORIDE 0.9% IV 1,000 ML 75 ML IV CONT (05:17)
[2021-04-28 05:26] VITALS: BP 123/77; PULSE 74; RESP 16; TEMP 36.4; O2SAT 96
[2021-04-28 08:00] VITALS: PULSE 74; RESP 16; O2SAT 96
[2021-04-28] MEDS: methylPREDNISolone SOD SUCC 40 MG VIAL IV PUSH (08:57)
--- NOTE | 2021-04-28 09:53 | PM.DS ---
DS: Admitting Diagnosis Discharge Date 04/28/2021 Admitting Diagnosis vertigo DS: Discharge Diagnosis Discharge Diagnosis (1) Benign paroxysmal positional vertigo: Code(s): H81.10 - Benign paroxysmal vertigo, unspecified ear Status: Acute Assessment and Plan: MRI head is negative Neurology consult reviewed Pt still complains of dizziness and turning her head, I will consult ENT 04/26/2021 interval history: patient with complaint of dizziness and nausea and vomiting, CTA of the head and neck and MRI of the brain are negative for any acute injury, patient is seen by ENT and suspect patient may have a vestibular neuritis recommended to start the patient low-dose of steroids will start the patient on methylprednisone 40 mg b.i.d., patient is seen by Neurology and suspect labyrinthitis, patient is also started on meclizine, will continue to monitor will have a PT OT evaluate the patient further recommendation to follow. 04/27/2021 interval history: patient continue to complaint of dizziness and nausea and vomiting, CTA of the head and neck and MRI of the brain are negative for any acute injury, patient was seen by ENT and suspect patient may have a vestibular neuritis recommended to start the patient low-dose of steroids, started the patient on methylprednisone IV 40 mg b.i.d., patient is seen by Neurology and suspect labyrinthitis, patient is also started on meclizine, patient still unsteady of her feet, will continue IV steroids, will continue to monitor, have continue PT OT evaluate the patient further recommendation to follow. (2) Nausea & vomiting: Qualifiers: Vomiting type: unspecified Qualified Code(s): R11.2 - Nausea with vomiting, unspecified Code(s): R11.2 - Nausea with vomiting, unspecified Status: Acute Assessment and Plan: Likely secondary to vertigo Continue IV fluids (3) Wound of right foot: Code(s): S91.301A - Unspecified open wound, right foot, initial encounter Status: Acute Assessment and Plan: Local care I will treat with IV vancomycin recent foot surgery with infection Watch for BC DS: Summary Hospital Course Reason for hospitalization: Chief Complaint: Vertigo Narrative: This is a 56-year-old female with no significant past medical history patient with recent foot surgery to the right lower extremity due to protracted foot fracture for the last 2+ years. Patient presents to the emergency room due to vertigo sensation of room spinning around her every time she changes position of her head or open her eyes with some nausea and vomiting as well, no syncope or near syncope , no focal sensorimotor deficit ,no palpitations ,no shortness of breath ,no cough ,no sputum production, no rigors, no chills, no fevers, no abdominal pain, no diarrhea, no vision changes. Preliminary workup was significant for why blood cell count of 18,000 CTA of head and neck did not show any acute abnormalities. Patient also denies any discharge through the nose or congestion. Patient is been admitted for further evaluation, management and treatment. Hospital Course: MRI head is negative Neurology consult reviewed Pt still complains of dizziness and turning her head, I will consult ENT 04/26/2021 interval history: patient with complaint of dizziness and nausea and vomiting, CTA of the head and neck and MRI of the brain are negative for any acute injury, patient is seen by ENT and suspect patient may have a vestibular neuritis recommended to start the patient low-dose of steroids will start the patient on methylprednisone 40 mg b.i.d., patient is seen by Neurology and suspect labyrinthitis, patient is also started on meclizine, will continue to monitor will have a PT OT evaluate the patient further recommendation to follow. 04/27/2021 interval history: patient continue to complaint of dizziness and nausea and vomiting, CTA of the head and neck and MRI of the brai
== END 2021-04-28 10:45 | disposition home or self-care (01) | DRG 149 ==
LOC: ANHED 23:07 → ANH3MEDSUR 04-25 00:08
PROVIDERS: Emergency Medicine; Family Medicine; Orthopaedic Surgery; Admitting Provider Internal Medicine; Emergency Provider Emergency Medicine; PCP Family Medicine; Visit Provider Family Medicine
DX: H81.20 Vestibular neuronitis, unspecified ear (principal); H83.09 Labyrinthitis, unspecified ear; S91.301A Unspecified open wound, right foot, initial encounter; Z98.890 Other specified postprocedural states
CPT/HCPCS: 36415; 70496; 70498; 70553; 80053; 80202; 81001; 82565; 82948; 85025; 85610; 85652; 85730; 86140; 87040; 93005; 96361; 96365; 96366; 96374; 96375; 96376; 97161; 97165; 99285; A9270; A9577; G0378; J2060; J2405; J2920; J3360; J3370; J7030; Q9967